=== PATIENT | female | born 1995 | race African-American/Black ===

== ENCOUNTER → 2023-06-27 13:06 | Outpatient (BNVA) | payer BC, SELFPAY | PROVIDERS: Visit Provider Physician Assistant ==

== ENCOUNTER 2023-07-01 07:57 | Outpatient (AMB) | payer OTHER, SELFPAY ==
--- NOTE | 2023-07-01 09:11 | A.OFFVIS_ITS ---
Intake VS Expanded 07/01/23 09:20 Height 5 ft 5 in Weight 270 lb 2 oz BMI 44.9 Body Fat % 50.5 Body Fat Mass 136.4 Fat Free Mass 133.6 Visceral Fat Rating 14 Body Water % 35.6 Body Water Mass 96.2 Basal Metabolic Rate/Score 1,957 Intake Visit Reasons: TV [employer] SWL BMI 44.9 Allergies No Known Allergies Allergy (Verified 07/01/23 09:11) Medication List - Last Reconciled 07/01/23 by Bin Hoang MD No Known Home Meds HPI TV [employer] SWL BMI 44.9 HPI Details Start time: 9am, End time: 9.45am ?I spent 40 minutes speaking with the patient on the phone plus an additional 5 minutes reviewing and updating records for a total of 45 minutes HPI Comments History of Present Illness Details Previous weight loss efforts: exercise Wakes up: 7am, Sleeps: 11pm Breakfast: skips except from Sundays Lunch: occasionally x3/wk 1-3pm ([place], fast food) Dinner: 7pm (chicken, wraps, pasta) Snacks: [place] mix during the day, occasionally after dinner Exercise: walking occasionally, has Gym membership, has stationary bike Fluids: Coffee: none, Tea: 4/wk (with honey), soda: Mountain Dew (1 can per day), juice: none, ETOH; 3/month [facility] Medical History (Updated 07/01/23 @ 09:12 by Bin Hoang MD) GERD (gastroesophageal reflux disease) Morbid obesity Surgical History (Updated 06/27/23 @ 14:03 by Mellisa Loya CMA) Hx of wisdom tooth extraction Family History (Updated 06/27/23 @ 14:07 by Mellisa Loya CMA) Mother Breast cancer Father Family history unknown Social History (Updated 06/27/23 @ 14:03 by Mellisa Loya CMA) Alcohol intake: current Alcohol intake frequency: holidays/special occasions only Patient Tobacco Use Status: Never used Tobacco Substance Use Type: Marijuana Assessment & Plan Assessment & Plan (1) Morbid obesity: Code(s): E66.01 - Morbid (severe) obesity due to excess calories Plan: 1.? Plan for lap sleeve gastrectomy. If diaphragmatic or ventral hernias are present at time of surgery, these will be repaired laparoscopically as well. Risks and complications were discussed in detail including possible conversion to an open procedure, anastomotic leak, bleeding requiring transfusion, small bowel obstruction, , DVT and pulmonary embolism, cardiac, or pulmonary complications, as laborer marine terminal complications such as anastomotic ulcer, insufficient weight loss and vitamin deficiencies. I emphasized the importance of close follow-up, adherence to instructions and good communication. 2. Nutritional counseling. Start with 2 CELEBRATE REBUILD protein (buy at [facility]'s [employer] shop) shakes (ONE scoop EACH in 8oz low fat unsweetened almond milk each) at 8am-10am and 11am-1pm, 1 protein bar (CELEBRATE protein bars, buy at [facility]'s [employer]) at 2pm-4pm, HALF protein bar at 5-6pm, dinner at 7pm (10 forks of protein and 10 forks of salad/vegetables) AND one more protein bar after dinner at 9pm-11pm. So you do 2 protein shakes, 2.5 protein bars and one meal per day. Meal to include lean meat (beef, fish, pork, turkey, chicken), or kyrgyz yogurt, or egg whites, or beans with a salad with olive oil and fruits (berries, pears, apples, kiwi). Avoid salt, breads, potatoes, rice, pasta, desserts. 3. Each shake would be drunk slowly, like coffee in a period of 2 hours. 4. Cut each bar in 4 pieces and eat each piece in 30min ?to make each bar last 2 hours. 5. I emphasized the importance of measuring accurately the food portion and measure it when serving the food in plate 6. The meal portions include 10 full-size forks of meat and 10 full-size forks of salad. You always eat the meat portion but you can replace up to 5 forks for salad/vegetables with rice, potatoes or pasta, or a fruit ?if you like. The less you do it the better weight loss will be. 7. One full-size fork is what it can be scooped on the fork without falling aside and not what can be bit with the fork. Use regular forks like those you find in a typical restaurant. 8.? Please send me weight measurements as soon as possible and then once a week. Always include your diet and exercise plan. 9. Start Elliptical with an incline of 2.0 and resistance of 4.0. Increase resistance by 1 every 3 min to a max resistance of 10.0, and repeat cycles for 300 calories. 10. Start stationary bike at a resistance level of 4.0 Increase level by 1.0 every 3 min to a max level of 10.0. Stay at this level for 3 min and then return to level 4.0 and repeat same steps until 300 calories are burned daily. Goal is to burn 2000 calories per week on exercise 10.?It is important of avoiding and for at least 18 months postoperatively and has been discussed at the infosession. 11. Goal is to lose at least 1.5-2lbs per week 12. Goal to lose 10% of your weight before surgery, which is about 27lbs. Ultimate weight goal: 243lbs before surgery 13. Please follow the diet plan exactly without any change. If you don't like something about the plan or you feel hungry you need to communicate with me so I can help you revise the plan. You should not change the plan yourself. (2) GERD (gastroesophageal reflux disease): Code(s): K21.9 - Gastro-esophageal reflux disease without esophagitis Orders: Orders IRON PROFILE Today E66.01 - Morbid (severe) obesity due to excess calories, K21.9 - Gastro-esophageal reflux disease without esophagitis Vitamin B12 and Folate Today E66.01 - Morbid (severe) obesity due to excess calories, K21.9 - Gastro-esophageal reflux disease without esophagitis Zinc Today E66.01 - Morbid (severe) obesity due to excess calories, K21.9 - Gastro-esophageal reflux disease without esophagitis Comprehensive Met. Panel Today E66.01 - Morbid (severe) obesity due to excess calories, K21.9 - Gastro-esophageal reflux disease without esophagitis Vitamin A Today E66.01 - Morbid (severe) obesity due to excess calories, K21.9 - Gastro-esophageal reflux disease without esophagitis Ferritin Today E66.01 - Morbid (severe) obesity due to excess calories, K21.9 - Gastro-esophageal reflux disease without esophagitis PTHI Today E66.01 - Morbid (severe) obesity due to excess calories, K21.9 - Gastro-esophageal reflux disease without esophagitis TSH reflex Free T4 Today E66.01 - Morbid (severe) obesity due to excess calories, K21.9 - Gastro-esophageal reflux disease without esophagitis Vitamin D 25-OH Total Today E66.01 - Morbid (severe) obesity due to excess calories, K21.9 - Gastro-esophageal reflux disease without esophagitis Hemoglobin A1c Today E66.01 - Morbid (severe) obesity due to excess calories, K21.9 - Gastro-esophageal reflux disease without esophagitis XR chest 2V Today E66.01 - Morbid (severe) obesity due to excess calories, K21.9 - Gastro-esophageal reflux disease without esophagitis Insulin Today E66.01 - Morbid (severe) obesity due to excess calories, K21.9 - Gastro-esophageal reflux disease without esophagitis Lipid Panel Today E66.01 - Morbid (severe) obesity due to excess calories, K21.9 - Gastro-esophageal reflux disease without esophagitis Complete Blood Count Auto Diff Today E66.01 - Morbid (severe) obesity due to excess calories, K21.9 - Gastro-esophageal reflux disease without esophagitis Vitamin B1 Today E66.01 - Morbid (severe) obesity due to excess calories, K21.9 - Gastro-esophageal reflux disease without esophagitis C Reactive Protein Today E66.01 - Morbid (severe) obesity due to excess calories, K21.9 - Gastro-esophageal reflux disease without esophagitis H Pylori Breath Test Today E66.01 - Morbid (severe) obesity due to excess calories, K21.9 - Gastro-esophageal reflux disease without esophagitis US abdomen comp w elastography Today E66.01 - Morbid (severe) obesity due to excess calories, K21.9 - Gastro-esophageal reflux disease without esophagitis ECG 12 lead EKG Today E66.01 - Morbid (severe) obesity due to excess calories, K21.9 - Gastro-esophageal reflux disease without esophagitis FL upper GI w air Today E66.01 - Morbid (severe) obesity due to excess calories, K21.9 - Gastro-esophageal reflux disease without esophagitis Referrals Behavioral Health Referral E66.01 - Morbid (severe) obesity due to excess calories, K21.9 - Gastro-esophageal reflux disease without esophagitis Nutrition/Dietitian Referral E66.01 - Morbid (severe) obesity due to excess calories, K21.9 - Gastro-esophageal reflux disease without esophagitis Telehealth Telehealth Location of provider rendering services: practice address Location of patient: address on file Patient Identification confirmed using: Name, : Yes Telehealth method: voice only Patient verbally consented to treatment: Yes Patient verbally consented to billing insurance company: Yes Patient informed of any privacy concerns related to visit: Yes Minutes spent on Phone/Video with Pt.: 45 Coding Level of Care Code Tele New Pt Level 4 (96183) Diagnoses Morbid obesity E66.01 GERD (gastroesophageal reflux disease) K21.9 Time Spent (min) 45
[2023-07-01 09:20] VITALS: BMI 44.9
== END 2023-07-01 09:46 | disposition home or self-care (01) ==
LOC: HO.HBS 07:57
PROVIDERS: Visit Provider Surgery
DX: E66.01 Morbid (severe) obesity due to excess calories (principal); Z68.41 Body mass index [BMI] 40.0-44.9, adult; K21.9 Gastro-esophageal reflux disease without esophagitis
CPT/HCPCS: 99443

== ENCOUNTER → 2023-07-01 07:57 | Outpatient (BNVA) | payer BC, SELFPAY | PROVIDERS: Visit Provider Surgery ==

== ENCOUNTER 2023-07-02 12:24 | Outpatient (REF) | payer OTHER, SELFPAY ==
--- NOTE | ~2023-07-02 | XR_ITS ---
EXAMINATION: XR CHEST CLINICAL INFORMATION: Morbid, severe obesity due to excess calories. Preop for weight management. COMPARISON: None available. TECHNIQUE: 3 views of the chest. FINDINGS: There is no gross pneumothorax. Heart size is normal. No pleural effusion. No focal consolidation to suggest pneumonia. XR/XR chest 2V IMPRESSION: No evidence of pneumonia.
--- NOTE | 2023-07-02 12:32 | ECG_ITS ---
Test Reason : e66.01 Blood Pressure : / mmHG Vent. Rate : 000 BPM Atrial Rate : 000 BPM P-R Int : 000 ms QRS Dur : 000 ms QT Int : 000 ms P-R-T Axes : 000 000 000 degrees QTc Int : 000 ms No QRS complexes found, no ECG analysis possible No previous ECGs available Referred By: Bin Hoang Electronically Signed By:
[2023-07-02 13:23] LABS: MANUAL DIFF FLAG NO
[2023-07-02 13:43] LABS: Basophils Percent Auto 0.3 % (0-2); Eosinophils Absolute Auto 0.1 X10*3/uL (0.0-0.4); Eosinophils Percent Auto 1.1 % (0-4); Hematocrit 36.7 % (37.0-47.0); Hemoglobin 12.9 g/dl (12.0-16.0); Imm Gran Abs Auto 0.03 X10*3/uL (0.00-0.03); Imm Gran Pct Auto 0.4 % (0.0-0.4); Lymphocytes Percent Auto 40.4 % (20-40); Mean Corpuscular HGB Conc 35.1 g/dl (31.0-35.0); Mean Corpuscular Hemoglobin 27.3 pg (27.0-33.0); Mean Corpuscular Volume 77.8 fL (80.0-98.0); Mean Platelet Volume 10.3 fL (9.4-12.3); Monocytes Absolute Auto 0.5 X10*3/uL (0.1-1.2); Monocytes Percent Auto 7.2 % (2-11); Neutrophils Absolute Auto 3.8 x10*3/uL (2.0-8.3); Neutrophils Percent Auto 50.6 % (45-73); Platelet Count 287 X10*3/uL (160-400); Red Blood Count 4.72 X10*6/uL (4.20-5.50); Red Cell Distribution Width 12.3 % (11.0-16.0); White Blood Count 7.5 X10*3/uL (4.8-10.8)
[2023-07-02 13:55] LABS: Estimated Average Glucose 85 mg/dL; Hemoglobin A1c % 4.6 % (<6.0)
[2023-07-02 14:30] LABS: Alanine Aminotransferase 17 U/L (0-31); Albumin Level 4.1 g/dL (3.5-5.0); Alkaline Phosphatase 57 U/L (39-117); Anion Gap 11 (12-20); Aspartate Amino Transferase 17 U/L (5-31); Bilirubin Total 0.5 mg/dL (0.0-1.0); Blood Urea Nitrogen 14 mg/dL (9-16); C Reactive Protein 0.17 mg/dL (< or = 0.50); Calcium 9.2 mg/dL (8.4-10.2); Carbon Dioxide 28 mmol/L (22-29); Chloride 106 mmol/L (96-108); Cholesterol 224 mg/dL (<200); Estimated Glomerular Filt Rate > 60; Glucose Random 84 mg/dL (60-115); HDL Cholesterol 48 mg/dL (>40); Iron 102 mcg/dL (30-160); LDL Cholesterol Calculated 160 mg/dL (<100); Percent Iron Saturation 34 % (15-50); Potassium 3.5 mmol/L (3.3-5.1); Sodium 141 mmol/L (135-145); Total Iron Binding Capacity 302 mcg/dL (228-428); Total Protein 8.4 g/dL (6.5-8.0); Triglycerides 81 mg/dL (<150); Unsaturated Iron Binding 200 ug/dL
[2023-07-02 14:35] LABS: Ferritin 33 ng/mL (10-122); Vitamin D 25-OH Total 12.9 ng/mL (>30)
[2023-07-02 14:43] LABS: Folate 6.5 ng/mL (> or = 4.0); Vitamin B12 668 pg/mL (200-900)
[2023-07-02 15:02] LABS: Insulin 35 uU/mL (2-29)
[2023-07-03 18:13] LABS: Calcium (PTHI) 9.2 mg/dL (8.6-10.2); PTHI 48 pg/mL (16-77)
[2023-07-05 17:58] LABS: Zinc 67 mcg/dL (60-130)
[2023-07-08 11:20] LABS: Vitamin A 43 mcg/dL (38-98); Vitamin B1 13 nmol/L (8-30)
== END 2023-07-02 12:25 | disposition home or self-care (01) ==
LOC: HO.XRAY 12:24
PROVIDERS: Visit Provider Surgery
DX: E66.01 Morbid (severe) obesity due to excess calories (principal); K21.9 Gastro-esophageal reflux disease without esophagitis
CPT/HCPCS: 36415; 71046; 80053; 80061; 82306; 82607; 82728; 82746; 83036; 83525; 83540; 83970; 84425; 84443; 84590; 84630; 85025; 86140; 93005

== ENCOUNTER 2023-07-22 08:10 | Outpatient (AMB) | payer OTHER, SELFPAY ==
--- NOTE | 2023-07-22 10:33 | A.OFFVIS_ITS ---
Intake VS Expanded 07/22/23 10:44 Height 5 ft 5 in Weight 272 lb 9 oz BMI 45.4 Intake Visit Reasons: TV Follow Up SWL - 1ST Allergies No Known Allergies Allergy (Verified 07/01/23 09:11) HPI TV Follow Up SWL - 1ST HPI Details Start time: 10.22am, End time: 10.52am ?I spent 25 minutes speaking with the patient on the phone plus an additional 5 minutes reviewing and updating records for a total of 30 minutes HPI Comments History of Present Illness Details Is doing 2 Celebrate Rebuild protein shakes (1 scoop in 8oz almond milk) and a meal. Does not like the bars Exercise: walking outside x2/week and biking outside 2/week PFSH Medical History (Updated 07/13/23 @ 12:37 by Bin Hoang MD) GERD (gastroesophageal reflux disease) Morbid obesity Surgical History (Updated 06/27/23 @ 14:03 by Mellisa Loya CMA) Hx of wisdom tooth extraction Family History (Updated 06/27/23 @ 14:07 by Mellisa Loya CMA) Mother Breast cancer Father Family history unknown (Updated 06/27/23 @ 14:03 by Mellisa Loya CMA) Alcohol intake: current Alcohol intake frequency: holidays/special occasions only Patient Tobacco Use Status: Never used Tobacco Substance Use Type: Marijuana Assessment & Plan Assessment & Plan (1) Morbid obesity: Code(s): E66.01 - Morbid (severe) obesity due to excess calories Plan: 1. Please change nutritional plan to 2 CELEBRATE REBUILD protein shakes (ONE scoop EACH in 8oz low fat unsweetened almond milk each) at 8am-10am and 11am- 1pm, 1 M[place]gas[place] yogurt at 2pm-4pm, dinner at 6pm-7pm (10 forks of protein and 10 forks of salad/vegetables) AND one more CELEBRATE REBUILD protein shake (ONE scoop EACH in 8oz low fat unsweetened almond milk at 8pm-10pm. So you do 3 protein shakes, 1 [place]gasque and one meal per day. 2. Please track the calories of the outside walking and biking. Only track calories the calories you burn at the actual walk or bike ride and not the calories of the entire day. 3. I strongly recommend that you purchase a stationary bike, elliptical or treadmill at home that can track calories. Let me know if you do so I can give you an exercise plan. 4. Send me weight measurements tomorrow and then weekly on Tuesdays Telehealth Telehealth Location of provider rendering services: practice address Location of patient: address on file Patient Identification confirmed using: Name, : Yes Telehealth method: voice only Patient verbally consented to treatment: Yes Patient verbally consented to billing insurance company: Yes Patient informed of any privacy concerns related to visit: Yes Minutes spent on Phone/Video with Pt.: 30 Coding Level of Care Code Tele Est Pt Level 4 (03367) Diagnoses Morbid obesity E66.01 Time Spent (min) 30
[2023-07-22 10:44] VITALS: BMI 45.4
== END 2023-07-22 10:53 | disposition home or self-care (01) ==
LOC: HO.HBS 08:10
PROVIDERS: Visit Provider Surgery
DX: E66.01 Morbid (severe) obesity due to excess calories (principal); Z68.42 Body mass index [BMI] 45.0-49.9, adult
CPT/HCPCS: 99443

== ENCOUNTER → 2023-07-22 08:10 | Outpatient (BNVA) | payer BC, SELFPAY | PROVIDERS: Visit Provider Surgery ==

== ENCOUNTER 2023-07-27 15:37 | Emergency (ER) | payer OTHER, SELFPAY ==
--- NOTE | ~2023-07-27 | XR_ITS ---
EXAMINATION: XR FOOT, LEFT CLINICAL INFORMATION: Fall, pain COMPARISON: None available. TECHNIQUE: AP, lateral, and oblique views of the left foot. FINDINGS: The bones and soft tissues are normal. No fracture. Alignment is anatomic. Joint spaces are maintained. XR/XR foot LT min 3V IMPRESSION: Normal left foot.
--- NOTE | ~2023-07-27 | XR_ITS ---
EXAMINATION: XR ANKLE, LEFT CLINICAL INFORMATION: Pain, fall COMPARISON: None available. TECHNIQUE: AP, lateral, and mortise views of the left ankle. FINDINGS: Small ossific density adjacent to the lateral malleolus with overlying soft tissue swelling. The ankle mortise is intact. No additional fractures are identified. XR/XR ankle LT min 3V IMPRESSION: Small ossific density adjacent to the lateral malleolus with overlying soft tissue swelling may represent a small avulsion fracture.
[2023-07-27 16:02] VITALS: BP 129/81; PULSE 61; RESP 16; TEMP 36.1; O2SAT 100; BMI 47.1
--- NOTE | 2023-07-27 16:02 | ED_ITS ---
HPI - Extremity Injury (Lower) General Chief Complaint: Extremity Injury, Lower Stated Complaint: Fall, L ankle pain and swelling Time Seen by Provider: 07/27/23 16:51 Source: patient Mode of arrival: ambulatory Limitations: no limitations History of Present Illness HPI Narrative: 27yo female with history of GERD, obesity here with complaints of left ankle pain after a trip and fall injury. Patient reports that she caught her foot underneath her dog toy causing her body to fall forward and a flexion of her foot and ankle. Denies hitting head or LOC. No associated weakness, numbness, tingling. Difficulty with WB since injury Related Data Previous Rx's Medication Instructions Recorded cholecalciferol (vitamin D3) 125 125 mcg PO DAILY #30 caps 07/13/23 mcg (5,000 unit) capsule Allergies Allergy/AdvReac Type Severity Reaction Status Date / Time No Known Allergies Allergy Verified 07/27/23 16:02 Review of Systems Review of Systems: Yes all other systems are reviewed and are negative Constitutional: Constitutional: Reports no additional constitutional complaints, Denies body ache(s), Denies chills, Denies fever(s), Denies headache(s) and Denies weakness Eyes: Eyes: Reports no additional eye complaints and Denies change in vision ENT: Reports system reviewed and no additional complaints, except as documented, Denies dizziness, Denies headache(s), Denies nasal congestion, Denies nasal discharge and Denies neck pain Cardiovascular: Cardiovascular: Reports no additional cardiovascular complaints, Denies chest pain, Denies leg edema and Denies dyspnea Respiratory: Respiratory: Reports no additional respiratory complaints, Denies cough and Denies dyspnea Gastrointestinal: Gastrointestinal: Reports no additional gastrointestinal complaints, Denies abdominal pain, Denies diarrhea, Denies nausea and Denies vomiting Genitourinary: Genitourinary: Reports no additional female genitourinary complaints and Denies urinary incontinence Musculoskeletal: Musculoskeletal: Reports no additional musculoskeletal compl aints, Denies back pain, Reports arthralgias, Reports joint swelling, Reports limited range of motion, Denies neck pain, Denies numbness and Denies tingling Integumentary/Breasts: Skin/Breast: Reports system reviewed and no additional complaints, except as docu and Denies rash Neurologic: Reports system reviewed and no additional complaints, except as documented, Denies Abnormal speech present, Denies dizziness, Denies headache(s), Denies numbness, Denies tingling and Denies weakness [facility] Past Medical History Attestation statement: The following information was validated with the patient. Source: old records reviewed and nursing notes reviewed Medical History GERD (gastroesophageal reflux disease) Morbid obesity Surgical History Hx of wisdom tooth extraction Family History Family History Mother Breast cancer Father Family history unknown Social History Social History (Updated 06/27/23 @ 14:03 by Mellisa Loya CMA) Alcohol intake: current Alcohol intake frequency: holidays/special occasions only Patient Tobacco Use Status: Never used Tobacco Substance Use Type: Marijuana Advance Directives: No Advance Directives Information Provided: Yes Physical Exam Vital Signs: Vital Signs: Last Vital Signs Temp 96.9 F 07/27/23 16:02 Pulse 61 07/27/23 16:02 Resp 16 07/27/23 16:02 BP 129/81 07/27/23 16:02 Pulse Ox 100 07/27/23 16:02 O2 Del Method Room Air 07/27/23 16:02 BMI result Body Mass Index 47.1 Const: General: cooperative, healthy appearing, comfortable and no acute distress Orientation/consciousness: patient oriented x3 Limitations: no limitations HEENT: Head: Yes normal to inspection Ears: hearing grossly normal bilaterally General nose exam: Normal external nose present Face and sinus: Yes normal facial exam Mouth: Normal oral and palatal mucosa present Throat: Yes posterior oropharynx normal Eyes: General: appearance normal, both eyes and all related structures Pupils: Equal, round and reactive pupils present Neck: Neck: Yes normal visual inspection Chest: Chest palpation & inspection: normal inspection of the chest Resp: Effort & Inspection: normal respiratory effort Auscultation: clear to auscultation bilaterally Cardio: Rate: regular rate Rhythm: regular rhythm Peripheral pulses: Peripheral pulses 2+ throughout GI: Inspection: Yes normal to inspection Palpation (GI): Soft to palpation and nontender Auscultation: normal bowel sounds Back/Spine/Pelvis: Thoracic/Lumbar Spine: thoracic and lumbar spine normal to inspection Skin: General skin exam: no rashes or lesions noted Neuro: General: patient oriented x3, no focal motor deficits and normal sen sation to monofilament Cranial nerves: Yes Equal, round and reactive pupils present Cognition (Neuro): normal cognition Speech: No Abnormal speech present Gait exam (Neuro): Normal gait present Motor exam (neuro): 5/5 motor strength present throughout Extrem: Other: +swelling/ecchymosis to the lateral left ankle with TTP 2+ DP/PT pulses Normal sensation Limited passive/active ROM d/t pain Unable to assess ligament laxity d.t pain Negative seo test no pain on palpation to the posterior ankle, foot Course Course Course Narrative: Patient is a 27-year-old female who presents emergency department for evaluation of left ankle pain, traumatic in nature, trip and fall on the stairs. Without head strike or loss of consciousness. Pain is worse with weight-bearing. Plan; XR Medications Administered Discontinued Medications Generic Name Dose Route Start Last Admin Trade Name Freq PRN Reason Stop Dose Admin Ibuprofen 600 mg 07/27/23 16:04 07/27/23 17:29 Ibuprofen 600 Mg Tablet PO 07/27/23 16:05 600 mg ONCE ONE Administration Medical Decision Making Medical Decision Making [facility] Narrative: 27yo female with history of GERD, obesity here with complaints of left ankle pain after a trip and fall injury. Patient reports that she caught her foot underneath her dog toy causing her body to fall forward and a flexion of her foot and ankle. Denies hitting head or LOC. No associated weakness, numbness, tingling. Difficulty with WB since injury +swelling/ecchymosis to the lateral left ankle with TTP 2+ DP/PT pulses Normal sensation Limited passive/active ROM d/t pain Unable to assess ligament laxity d.t pain Negative seo test no pain on palpation to the posterior ankle, foot Will need x-ray, analgesia Differential Diagnosis Differential Diagnoses: The differential diagnosis associated with the presentation includes sprain, strain, fracture low concern for dislocation, vascular injury Admission/Observation Consideration of admission/observation: Escalation of care including admission/observation considered low concern for vascular injury, complicated fracture or dislocation requiring advanced imaging. Independent Interpretation I performed an independent interpretation of an: Plain X-Ray Interpretation: I independently reviewed the x-ray and agree with Radiology report Radiology Impression Discussion of test interpretation with radiology: I have reviewed the radiologist's reading. Radiologist Impression: [address] [address] XRay Report Signed Patient: Sherron Rivas MR#: [id number] : 1995 Acct:[id number] Age/Sex: 27 / F ADM Date: 07/27/23 Loc: HO.ED Attending Dr: Ordering Physician: Melanie Munoz CNP Date of Service: 07/27/23 Procedure(s): XR ankle LT min 3V Accession Number(s): [id number] cc: Melanie Munoz CNP; Kevin Latif~ EXAMINATION: XR ANKLE, LEFT CLINICAL INFORMATION: Pain, fall COMPARISON: None available. TECHNIQUE: AP, lateral, and mortise views of the left ankle. FINDINGS: Small ossific density adjacent to the lateral malleolus with overlying soft tissue swelling. The ankle mortise is intact. No additional fractures are identified. XR/XR ankle LT min 3V IMPRESSION: Small ossific density adjacent to the lateral malleolus with overlying soft tissue swelling may represent a small avulsion fracture. Independent Historian Clinical information obtained from an independent historian. History obtained from or confirmed by: Friend Tests considered The following testing was considered but not selected: low concern for vascular injury, complicated fracture or dislocation requiring advanced imaging. Prescription Management I considered prescription management with: Pain Medication Procedures Orthopedic Splinting/Casting Injury #1: Side: left Lower Extremity Injury Location: ankle Lower Extremity Immobilizer: AirCast Other Orthopedic Equipment: crutches Discharge Plan Discharge Clinical Impression: Avulsion fracture of distal fibula Patient Disposition: Home, Self-Care Instructions: Ankle Fracture (ED), Crutch Instructions (ED) Additional Instructions: Rest, ice, elevation Use the air splint and crutches with nonweightbearing for several days Take ibuprofen 3 times a day for the next few days to help with swelling and pain Follow-up with Orthopedics Prescriptions: No Action cholecalciferol (vitamin D3) 125 mcg (5,000 unit) capsule 125 mcg PO DAILY Qty: 30 2RF Referrals: [facility] [place] Orthopedic Surgeons [Provider Group] - 5 days
[2023-07-27] MEDS: Ibuprofen 600 MG TABLET PO (17:29)
== END 2023-07-27 18:07 | disposition home or self-care (01) ==
PROVIDERS: Emergency Provider Student in an Organized Health Care Education/Training Program
DX: S82.831A Other fracture of upper and lower end of right fibula, initial encounter for closed fracture (principal); W22.8XXA Striking against or struck by other objects, initial encounter; Y93.89 Activity, other specified; Y92.009 Unspecified place in unspecified non-institutional (private) residence as the place of occurrence of the external cause; Y99.9 Unspecified external cause status
CPT/HCPCS: 73610; 73630; 99283

== ENCOUNTER → 2023-12-16 08:37 | Outpatient (BNVA) | payer OTHER, SELFPAY | PROVIDERS: Visit Provider Surgery ==

== ENCOUNTER 2023-12-16 11:30 | Outpatient (AMB) | payer BC, SELFPAY ==
[2023-12-16 23:04] VITALS: BMI 48.5
--- NOTE | 2023-12-16 23:04 | MHC.OFFVISWM ---
VS Expanded 12/16/23 23:04 Height 5 ft 4 in Weight 282 lb 9 oz BMI 48.5 Intake Visit Reasons: TV Re-Est SWL Allergies No Known Allergies Allergy (Verified 12/16/23 23:05) Medication List - Last Reconciled 12/16/23 by Bin Hoang MD cholecalciferol (vitamin D3) 125 mcg PO DAILY HPI HPI TV Re-Est SWL: Details: Start time: 3.50pm, End time: 4.10pm ?I spent 15 minutes speaking with the patient on the phone plus an additional 5 minutes reviewing and updating records for a total of 20 minutes HPI Comments Details: Re-establishing care. More certain now that she want to proceed with bariatric surgery [facility] Medical History GERD (gastroesophageal reflux disease) Morbid obesity Surgical History Hx of wisdom tooth extraction Family History Mother Breast cancer Father Family history unknown Social History (Updated 06/27/23 @ 14:03 by Mellisa Loya CMA) Alcohol intake: current Alcohol intake frequency: holidays/special occasions only Patient Tobacco Use Status: Never used Tobacco Substance Use Type: Marijuana Telehealth Telehealth Telehealth Platform: Telephone Location of provider rendering services: practice address Location of patient: address on file Patient Identification confirmed using: Name, : Yes Telehealth method: voice only Patient verbally consented to treatment: Yes Patient verbally consented to billing insurance company: Yes Patient informed of any privacy concerns related to visit: Yes Minutes spent on Phone/Video with Pt.: 20 Assessment & Plan Assessment & Plan (1) Morbid obesity: Code(s): E66.01 - Morbid (severe) obesity due to excess calories Category: Medical Plan: 1. Plan for lap sleeve gastrectomy. If diaphragmatic or ventral hernias are present at time of surgery, these will be repaired laparoscopically as well. Risks and complications were discussed in detail including possible conversion to an open procedure, anastomotic leak, bleeding requiring transfusion, small bowel obstruction, , DVT and pulmonary embolism, cardiac, or pulmonary complications, as terminal operations supervisor complications such as anastomotic ulcer, insufficient weight loss and vitamin deficiencies. I emphasized the importance of close follow-up, adherence to instructions and good communication. 2. To be scheduled for EGD due to history of GERD. The possibility of biopsies was discussed. Patient needs to avoid use of NSAIDs and aspirin for 1 week prior to EGD. Risks of perforation and? bleeding was discussed with the patient. This will be an outpatient procedure with IV sedation. 3. Send me weight measurements weekly on Fridays
== END 2023-12-16 23:12 | disposition home or self-care (01) ==
PROVIDERS: Visit Provider Surgery
DX: E66.01 Morbid (severe) obesity due to excess calories (principal)
CPT/HCPCS: 99213

== ENCOUNTER 2024-01-10 09:10 | Outpatient (REF) | payer BC, SELFPAY ==
--- NOTE | ~2024-01-10 | FL_ITS ---
EXAMINATION: XR FLUOROSCOPY UPPER GI WITH AIR CLINICAL INFORMATION: Morbid obesity due to excess calories. COMPARISON: None TECHNIQUE: Fluoroscopic air contrast upper GI examination was performed utilizing standard techniques with thin and thick barium and effervescent granules. Numerous spot images were obtained. FINDINGS: Dual and single contrast images of the esophagus demonstrate normal caliber, contour, and mucosal pattern. No evidence of stricture, mass, or ulcerations identified. Esophageal peristalsis was normal. No evidence of hiatus hernia identified. No significant gastroesophageal reflux was seen during the course of the examination and on reflux views. Dual contrast and single contrast images of the stomach demonstrated normal contour and mucosal pattern without evidence of mass, ulceration, or other abnormality. Contrast freely passed into the gastric antrum and duodenal bulb without delay. Single and air-contrast images of the duodenal bulb demonstrate no abnormality. The duodenal sweep has a normal appearance, course, and mucosal fold appearance. No malrotation. The imaged proximal jejunum has a normal fold pattern and caliber. FLUOROSCOPY TIME: 4 minutes 42 seconds Number of Spot Images: 12 Number of Cine: 13 DOSE AREA PRODUCT: 4056 uGy-m2 (microgray-meter squared) FL/FL upper GI w air IMPRESSION: Normal upper GI series. This procedure was performed by Shaw Abernathy PA-C, and supervised by Dr. Durham
== END 2024-01-10 09:11 | disposition home or self-care (01) ==
LOC: HO.XRAY 09:10
PROVIDERS: Visit Provider Surgery
DX: E66.01 Morbid (severe) obesity due to excess calories (principal); K21.9 Gastro-esophageal reflux disease without esophagitis
CPT/HCPCS: 74246

== ENCOUNTER → 2024-01-10 09:12 | Outpatient (BNV) | payer BC, SELFPAY | PROVIDERS: Visit Provider Physician Assistant Surgical | DX: E66.01 Morbid (severe) obesity due to excess calories (principal); Z01.818 Encounter for other preprocedural examination | CPT/HCPCS: 74246 ==

== ENCOUNTER 2024-02-05 10:45 | Outpatient (AMB) | payer BC, SELFPAY ==
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
== END 2024-02-05 14:41 | disposition home or self-care (01) ==
LOC: HO.HBST 11:26
PROVIDERS: Visit Provider Counselor Mental Health
DX: F32.A Depression, unspecified (principal); E66.01 Morbid (severe) obesity due to excess calories
CPT/HCPCS: 90791

== ENCOUNTER 2024-02-05 11:18 | Day surgery (SDC) | payer BC, SELFPAY ==
--- NOTE | 2024-02-03 12:43 | HO.ANESPROP2 ---
Documented by User: Xi Estrada NP 02/03/24 12:43 HPI - Anesthesia Eval Consult details Narrative: 28yo F for Upper Endoscopy PMFSH Active Problems Active Problems: All Active Problems Vitamin D deficiency (Acute) GERD (gastroesophageal reflux disease) (Acute) Morbid obesity (Acute) Past Medical History Medical History GERD (gastroesophageal reflux disease) Morbid obesity Family History Family History Mother Breast cancer Father Family history unknown Surgical History Surgical History Hx of wisdom tooth extraction Social History Social History Alcohol intake: current Alcohol intake frequency: holidays/special occasions only Patient Tobacco Use Status: Never used Tobacco Substance Use Type: Marijuana Advance Directives: No Advance Directives Information Provided: Yes Meds Allergies Allergy/AdvReac Type Severity Reaction Status Date / Time No Known Allergies Allergy Verified 12/16/23 23:05 Assessment and Plan Assessment Anesthesia Assessment: Chart Reviewed Documented by User: Marycruz Love MD 02/05/24 13:16 PMFSH Active Problems Active Problems: All Active Problems Vitamin D deficiency (Acute) GERD (gastroesophageal reflux disease) (Acute) Morbid obesity (Acute) BMI 48.5 Past Medical History Medical History GERD (gastroesophageal reflux disease) Morbid obesity Family History Family History Mother Breast cancer Father Family history unknown Family history of problems with anesthesia: No Surgical History Surgical History Hx of wisdom tooth extraction History of Problems with Anesthesia: No Social History Social History Alcohol intake: current Alcohol intake frequency: holidays/special occasions only Patient Tobacco Use Status: Never used Tobacco Substance Use Type: Marijuana Advance Directives: No Advance Directives Information Provided: Yes Meds Allergies Allergy/AdvReac Type Severity Reaction Status Date / Time No Known Allergies Allergy Verified 12/16/23 23:05 Exam Height,Weight and Vital Signs: Height 5 ft 4 in Weight 128.168 kg Vital Signs Temp Pulse Resp BP Pulse Ox O2 Del Method 96.6 F L 64 18 113/72 99 Room Air 02/05/24 12:29 02/05/24 12:29 02/05/24 12:29 02/05/24 12:29 02/05/24 12:29 02/05/24 12:29 Pertinent Lab Results Pertinent Lab Results: Lab Results 02/05/24 Range/Units 12:10 Urine Test NEGATIVE (NEGATIVE) Airway Mallampati Class: II TM Dist: >3cm Neck ROM: Full Loose/Missing/Broken Teeth: Yes (Missing a molar. Denies broken or loose teeth) Heart: RRR Lungs: CTAB Assessment and Plan Assessment Anesthesia Assessment: Anesthesia Plan Discussed and Chart Reviewed Final Anesthetic Review Family History of Problems with Anesthesia: No History of Problems with Anesthesia: No NPO: Yes ASA Class: III Final Preanesthetic Review: No Changes in Pt Med Stat, Meds/Allgs Chart Reviewed, Consent Obtained/Reviewed and Anes Risks/Benef Reviewed Patient Risk: Intermediate Procedure Risk: Low Assessment/Block/Sedation in SS: Assess/Block/Sedation-SS Anesthetic Plan Anesthetic Plan: GA and TIVA Disposition: Standard PACU
[2024-02-03 15:36] VITALS: BMI 48.5
[2024-02-05 12:22] LABS: Urine Pregnancy NEGATIVE (NEGATIVE)
[2024-02-05 12:23] LABS: UPreg QC Valid YES
[2024-02-05 12:29] VITALS: BP 113/72; PULSE 64; RESP 18; TEMP 35.9; O2SAT 99
--- NOTE | 2024-02-05 13:02 | MHC.SHP ---
Pre-Procedural Eval Section A - 24 Hr Update-Section A only Date of Service: 02/05/24 The patient is an INPATIENT: No The patient has been examined within 24 hours of the surgical procedure. The History & Physical has been completed within 30 days and I have reviewed it.: No Section B - Complete if H&P > 30 days Chief Complaint: Morbid (severe) obesity due to excess calories Details of Present Illness: GERD Relevant Family History (Specify if Yes): No Relevant Social History: None Present Medications: None Medical History: No relevant PMH History of Previous Operations: No relevant previous surgery Allergies: Allergies Allergy/AdvReac Type Severity Reaction Status Date / Time No Known Allergies Allergy Verified 12/16/23 23:05 Review of Systems Sugical H&P ROS: Negative: Constitution, Cardiovascular, Respiratory, Neurological, Psychiatric, Hem-Onc, Allergic/Immunologic, Gastrointestinal, Genitourinary, Musculoskeletal, Integumentary, Endocrine and Eyes/Ears/Nose/Throat Exam Surgical H&P Exam: Normal: HEENT, Normal: Heart, Normal: Lungs, Normal: Extremities, Normal: Abdomen, Normal: Skin and Normal: Neurological Plan Diagnosis/Plan: Unchanged (EGD to assess etiology of GERD. Risks of bleeding and perforation were discussed with the patient and she is in agreement with the plan.) I have reviewed the history and physical and performed a pertinent physical examination on my patient. No changes have occurred unless specified. Time Spent With Patient Time: Total time managing care of this patient today ____ minutes.
--- NOTE | 2024-02-05 13:05 | P.BOP_ITS ---
Brief Operative Note Date of Service: 02/05/24 Pre-op diagnosis: GERD Post-op diagnosis: same Procedure: PROCEDURE DATE: 02/05/2024 PREOPERATIVE DIAGNOSIS: GERD POSTOPERATIVE DIAGNOSIS: ?Same as above. 1) normal endoscopy PROCEDURE: [id number]-[id number] with biopsies Surgeon: Juan Alberto Hoang M.D.. Ph.D. Forensic Photographer: None ? Anesthesia: IV sedation Estimated blood loss: ?Minimal FINDINGS AND PROCEDURE: ? OPERATIVE INDICATIONS: ?The patient is a 28 year old female known to me who is interested in bariatric surgery. The patient has GERD. Based on this information I recommended an upper endoscopy to evaluate the patient's symptoms. Risks and complications of the surgery were discussed with the patient in advance particularly the possibility of perforation or bleeding that may require surgica l intervention. The patient understood the risks and was in agreement with the plan. ? PROCEDURE: After informed consent was obtained by the patient, the patient was ?transferred to the Operating Room and was placed in the supine position.? After successful induction of IV sedation, a mouth block was inserted and the patient was placed in the left lateral decubitus position. An upper endoscopy was performed next, the oropharynx and esophagus appeared within the normal limits. There was no hiatal hernia. The z-line was smooth. Two biopsies were obtained from the distal esophagus 2-3 cm proximal to the GE junction and two additional biopsies from the GE junction. The stomach was entered and it appeared to be of normal size. There was no gastritis. There was no stricture or ulcer. A biopsy was obtained from the gastric fundus and antrum. No significant bleeding was noted from any of the biopsy sites. Retroflexion of the scope revealed a normal GE junction. The scope was then advanced into the duodenum which appeared to be normal as well. At that point the duodenum ?and the stomach were decompressed and the scope was withdrawn from the patient's mouth. The patient extubated and was transferred in stable condition to the Recovery Room for further care. I was present and performed all steps of the procedure. There were no residents to assist with this case. Mark Hoang M.D., Ph.D. Surgeon: Bin Hoang MD Anesthesia: MAC Was an Forensic Photographer used for this Procedure?: No Estimated blood loss (mL): 0 IV fluids (mL): 400 Urine output (mL): 0 (No Juarez to record output) Condition: stable Disposition: PACU
[2024-02-05 13:52] VITALS: BP 100/78; PULSE 113; RESP 16; TEMP 36.2; O2SAT 98
[2024-02-05 14:19] VITALS: BP 112/76; PULSE 72; RESP 18; TEMP 36.2; O2SAT 99
== END 2024-02-05 15:04 | disposition home or self-care (01) ==
PROVIDERS: Nurse Practitioner; Visit Provider Surgery
PROC: 0DJ08ZZ Inspection of Upper Intestinal Tract, Via Natural or Artificial Opening Endoscopic (ICD-10-PCS; CPT 43235; principal; 2024-02-05 12:10)
DX: K21.9 Gastro-esophageal reflux disease without esophagitis (principal); K29.50 Unspecified chronic gastritis without bleeding; B96.81 Helicobacter pylori [H. pylori] as the cause of diseases classified elsewhere; E66.01 Morbid (severe) obesity due to excess calories; Z68.42 Body mass index [BMI] 45.0-49.9, adult
CPT/HCPCS: 43239; 81025; 88305; 88313; 88342; J1596; J2704

== ENCOUNTER → 2024-02-05 11:18 | Outpatient (BNV) | payer BC, SELFPAY | PROVIDERS: Visit Provider Surgery | DX: K21.9 Gastro-esophageal reflux disease without esophagitis (principal) | CPT/HCPCS: 43239 ==

== ENCOUNTER 2024-02-13 09:11 | Outpatient (REF) | payer BC, SELFPAY ==
--- NOTE | ~2024-02-13 | US_ITS ---
EXAMINATION: US COMPLETE ABDOMEN WITH LIVER ELASTOGRAPHY CLINICAL INFORMATION: Morbid obesity. COMPARISON: None available. TECHNIQUE: Real-time imaging of the abdominal viscera. Noninvasive ultrasound liver fibrosis assessment is performed using [employer] Elast[employer] point quantification shear wave elastography (2D-SWE) with a C5-2 MHz transducer. Multiple elastography samples are obtained. FINDINGS: PANCREAS: Largely obscured by overlapping bowel gas. ABDOMINAL AORTA: The proximal, middle, and distal aortic segments are normal in caliber. INFERIOR VENA CAVA: Visualized portions are normal. LIVER: The liver demonstrates normal size, contour and increased echogenicity. No focal lesion or intrahepatic biliary duct dilatation. The right lobe measures 15.3 cm in length. The left lobe measures 8.3 cm in length. Portal flow is towards the liver (hepatopetal). Shear wave liver elastography median stiffness is 1.31 m/s (reference: normal median stiffness is 1.3 m/s or less). IQR/median stiffness to assess sampling precision is 0.08 (reference: good quality data set is IQR/median stiffness of 0.15 or less). GALLBLADDER: A 1.0 cm nonmobile polyp is seen, with calcification. The gallbladder is physiologically distended without evidence of stones, sludge, polyps, wall thickening or pericholecystic fluid. COMMON BILE DUCT: Normal in caliber measuring 0.5 cm in diameter. RIGHT KIDNEY: Normal. No hydronephrosis. No renal calculi or focal parenchymal lesions. The kidney measures 10.3 cm in maximum dimension. LEFT KIDNEY: Normal. No hydronephrosis. No renal calculi or focal parenchymal lesions. The kidney measures 10.1 cm in maximum dimension. SPLEEN: Normal. The spleen measures 10.5 cm in maximum dimension. FREE FLUID: None. US/US abdomen comp w elastography IMPRESSION: 1. There is generalized increase in hepatic echotexture, consistent with fatty infiltration or hepatocellular disease. Please correlate clinically. No focal hepatic mass or intrahepatic biliary dilatation is seen. 2. Liver elastography: In the absence of other known clinical signs, measurements rule out compensated advanced chronic liver disease. If there are known clinical signs, further testing may be needed for confirmation. 3. A 1.0 cm partially calcified gallbladder polyp is seen. General Surgery evaluation and management are recommended. REFERENCE: Society of Radiologists in Ultrasound Liver Stiffness Thresholds (2020): LIVER STIFFNESS THRESHOLDS: *Liver Stiffness equal or less than 1.3 m/s: High probability of being normal. *Liver Stiffness less than 1.7 m/s: In the absence of other known clinical signs, rules out compensated advanced chronic liver disease. *Liver Stiffness 1.7-2.1 m/s: Suggestive of compensated advanced chronic liver disease but need further test for confirmation. *Liver Stiffness over 2.1 m/s: Rules in compensated advanced chronic liver disease. *Liver Stiffness over 2.4 m/s: Suggestive of clinically significant portal hypertension. QUALITY OF DATA SET: *IQR/Median value equal or less than 0.15 implies a quality data set. *IQR/Median value over 0.15 implies a poor quality data set. SIGNIFICANT CHANGE FROM PRIOR EXAM: Significant change if liver stiffness measurement is 10% or greater from prior exam. OTHER CONSIDERATIONS: The stage of liver fibrosis may be overestimated in the setting of acute hepatitis, liver inflammation, elevated liver function tests, hepatic vascular congestion, obstructive cholestasis, non-fasting state, and infiltrative diseases such as amyloidosis and lymphoma. In some patients with NAFLD, the liver stiffness thresholds for compensated advanced chronic liver disease may be lower. In causes other than viral hepatitis and NAFLD, liver stiffness thresholds are not well established.
== END 2024-02-13 09:12 | disposition home or self-care (01) ==
LOC: HO.US 09:11
PROVIDERS: Visit Provider Surgery
DX: E66.01 Morbid (severe) obesity due to excess calories (principal); K21.9 Gastro-esophageal reflux disease without esophagitis
CPT/HCPCS: 76700; 76981

== ENCOUNTER 2024-03-07 12:56 | Emergency (ER) | payer OTHER, BC, SELFPAY ==
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
[2024-03-07 13:13] VITALS: BP 129/85; PULSE 67; RESP 18; TEMP 36.1; O2SAT 100; BMI 45.3
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
[2024-03-07 14:46] VITALS: BP 119/84; PULSE 69; RESP 16; TEMP 36.8; O2SAT 99
[2024-03-07 15:13] VITALS: BP 00/00; PULSE 0; RESP 0; TEMP -17.7; TEMP 0; O2SAT 0
== END 2024-03-07 15:14 | disposition home or self-care (01) ==
PROVIDERS: Emergency Provider Emergency Medicine Emergency Medical Services
DX: S50.12XA Contusion of left forearm, initial encounter (principal); Y04.8XXA Assault by other bodily force, initial encounter; Y93.F9 Activity, other caregiving; Y92.239 Unspecified place in hospital as the place of occurrence of the external cause; Y99.0 Civilian activity done for income or pay
CPT/HCPCS: 73090; 99283